=== PATIENT | male | born 1985 | race Two or more races ===

== ENCOUNTER 2019-06-30 17:46 | Emergency (ER) | payer MEDICAID ==
[~2019-06-30] VITALS: Ht 180.3 cm; Wt 127.9 kg
[2019-06-30 20:00] VITALS: BP 138/49
== END 2019-06-30 20:21 | disposition home or self-care (01) ==
LOC: ER 17:46
DX: S20.211A Contusion of right front wall of thorax, initial encounter (principal); S09.90XA Unspecified injury of head, initial encounter; S40.812A Abrasion of left upper arm, initial encounter; V43.52XA Car driver injured in collision with other type car in traffic accident, initial encounter; Y93.89 Activity, other specified; Y99.8 Other external cause status; Y92.410 Unspecified street and highway as the place of occurrence of the external cause
CPT/HCPCS: 70450; 71046; 72125